=== PATIENT | female | born 1970 | race Caucasian/White ===

== ENCOUNTER 2017-09-01 11:16 | Day surgery (SDC) | payer OTHER ==
--- NOTE | 2017-09-01 13:14 | Operative Note ---
Colonoscopy (Shira) Procedure date: 09/01/17 Date of : 66 Procedure:Colonoscopy Colonoscopy with cold snare and hot snare polypectomy Indications: Mrs. Pink is a 47-year-old female who is here for diagnostic colonoscopy. She does state that she has 2 maternal aunts with colon cancer. She formerly had frequent functional diarrhea but has had a change in her bowel habits and now alternates between constipation and diarrhea. She had a colonoscopy more than 10 years ago in [facility] at which time colon polyps were removed. She reports no abdominal pain, weight loss or rectal bleeding. Performing Provider: Mary Beth Silva MD Referrring Provider: Jaycob Mcconnell M.D. Sedation: Fentanyl 150 mg IV/Versed 7 mg IV Procedure: Prior to the procedure, a history and physical exam was performed, and patient medications and allergies were reviewed. The risks and benefits of the procedure and the sedation options and risks were discussed with the patient. All questions were answered and informed consent was obtained. Patient identification and proposed procedure were verified by the physician and the nurse. The patient was placed in a left lateral decubitus position. Throughout the procedure, the patient's blood pressure, pulse, and oxygen saturations were monitored continuously. Findings: On digital rectal examination there was normal rectal tone. There were no external hemorrhoids. The colonoscope was introduced through the anal canal to the rectum and advanced to the cecum. The ileocecal valve and appendiceal orifice were identified. The scope was advanced a short distance into the ileum which appeared grossly normal. The scope was then withdrawn into the colon. There was a 5 mm polyp in the cecum. There was a larger 14 mm polyp in the ascending colon and a 8 mm polyp in the ascending colon. The smaller 2 polyps were removed via cold snare polypectomy and the larger polyp was removed via snare cautery. The remaining cecum, ascending, transverse, descending, sigmoid and rectum were grossly normal. There were no other mucosal abnormalities identified. Upon retroflexion within the rectum there were grade 1 internal hemorrhoids. The preparation was fair with the [place] preparation score of 7. Impressions: 1. Colonic polyps 3 (range in size from 5-14 mm) 2. Grade 1 internal hemorrhoids Recommendations: I will follow up the polyp pathology and recommend repeat colonoscopy again in 3 years based upon the polyp histology. I would encourage fiber supplementation on a long-term daily maintenance basis. Complications: None EBL (ml): 0 at 1314
[2017-09-01 15:55] VITALS: BP 102/50
== END 2017-09-01 14:15 | disposition home or self-care (01) ==
LOC: EDSEX 11:16 → SDC 11:16
PROVIDERS: Internal Medicine Gastroenterology
PROC: 0DBH8ZX Excision of Cecum, Via Natural or Artificial Opening Endoscopic, Diagnostic (ICD-10-PCS; 2017-09-01)
PROC: 0DBK8ZX Excision of Ascending Colon, Via Natural or Artificial Opening Endoscopic, Diagnostic (ICD-10-PCS; principal; 2017-09-01 12:30)
DX: D12.0 Benign neoplasm of cecum (principal); D12.3 Benign neoplasm of transverse colon; K64.0 First degree hemorrhoids